=== PATIENT | male | born 1975 | race Caucasian/White ===

== ENCOUNTER 2019-08-11 14:57 | Inpatient (IN) ==
[2019-08-11] MEDS ORDERED: IOPAMIDOL 100 ML BOTTLE IV ONE (14:58)
[2019-08-11] MEDS ORDERED: ONDANSETRON 4 MG/2 ML VIAL IV ONE (15:08)
[2019-08-11] MEDS ORDERED: 0.9 % SODIUM CHLORIDE 1,000 ML IV ONE (15:25)
[2019-08-11] MEDS: HYDROmorphone 2 MG/ML VIAL IV PRN ×4 (15:29→20:05)
[2019-08-11 15:44] LABS: POC Blood Urea Nitrogen 20 mg/dl (6-20); POC CO2 25 mmol/L (22-30); POC Chloride 103 mmol/L (96-108); POC Creatinine 1.3 mg/dl (0.7-1.2); POC Glucose, Random 96 mg/dL (70-105); POC Potassium 4.4 mmol/L (3.3-5.1); POC Sodium 137 mmol/L (133-145)
[2019-08-11 15:47] LABS: Basophils # (Auto) 0.1 K/mcL (0.0-0.3); Basophils % (Auto) 0.7 % (0.0-2.0); Eosinophils # (Auto) 0.4 K/mcL (0.0-0.7); Eosinophils % (Auto) 3.1 % (0.0-7.0); Granulocytes % (Auto) 71.4 % (38.0-78.0); Hematocrit 41.6 % (41.0-55.0); Lymphocytes # (Auto) 2.3 K/mcL (1.5-4.8); Lymphocytes % (Auto) 16.8 % (15.5-49.0); Mean Cell Volume 93.3 fL (80.0-100.0); Mean Corpuscular HGB Conc 33.7 g/dL (31.0-36.0); Mean Platelet Volume 7.3 fL (7.4-10.4); Monocytes # (Auto) 1.1 K/mcL (0.1-0.9); Platelet Count 272 K/mcL (140-440); RBC 4.46 M/mcL (4.50-5.90); Red Cell Distribution Width 12.6 % (11.5-14.5); WBC 13.6 K/mcL (4.5-11.0)
--- NOTE | 2019-08-11 16:05 | Emergency Department Note ---
Abdominal Pain HPI - General Chief Complaint: Abdominal Pain Stated Complaint: Abdominal pain Time Seen by Provider: 08/11/19 15:06 Source: patient Mode of arrival: ambulatory Limitations: no limitations - History of Present Illness HPI Narrative: 44-year-old male who recently had his right kidney removed for renal cell carcinoma comes in status post hospital stay 5 days with abdominal pain and lower right chest pain now requiring oxygen 2 L. His current pain medicine is helping some but this is feeling worse again like when he just recovered from s urgery over a week ago. - Related Data Home Medications Medication Instructions Recorded Confirmed oxyCODONE [OxyCONTIN] 10 mg PO BID 08/11/19 08/11/19 oxyCODONE/APAP [Percocet 5-325 mg] 1 - 2 tab PO Q4-6H PRN 08/11/19 08/11/19 Allergies Allergy/AdvReac Type Severity Reaction Status Date / Time ceftriaxone [From Rocephin] Allergy Hives Verified 06/16/19 09:58 ciprofloxacin [From Cipro] Allergy Verified 06/16/19 09:58 Review of Systems All systems ED: reviewed and negative except as stated. Abdominal Pain PMH - Past Medical History [facility] Narrative: Medical History (Last Reviewed 06/14/19 @ 18:07 by Avril Reilly DO) History of kidney stones (Acute) Medical history: Reports: cancer (Renal cell carcinoma), kidney stones Surgical history ED: Reports: other (Right nephrectomy) Family history: Reports: other (Grandfather diabetic) - Social History Smoking status: Light tobacco smoker Alcohol use: Reports: Occasionally (Did have 4 beers yesterday) Drug use: Reports: none Physical Exam Normocephalic atraumatic. Conjunctive mildly injected bilaterally. Anicteric. No nasal discharge or congestion. Oropharynx pink moist. Neck is supple without lymphadenopathy or thyromegaly. No carotid bruit. Heart is regular rate and rhythm no murmur appreciated. Lungs are clear to auscultation bilaterally without wheezes rales rhonchi or respiratory distress. Abdomen is mildly tender with laparoscopic wound sites healing well. No evidence of infection or trauma. There is no purulent drainage or erythema-wound sites are clean dry and intact. He is point of maximal tenderness is actually the right lower ribs sort of 10th rib area but I do not see any evidence of trauma. No contusion abrasion lacerations erythema. No pedal edema. +2 radial pulse. He is alert oriented able to answer questions appropriately Course Vital Signs Temperature 98.1 F 08/11/19 14:58 Pulse Rate 86 08/11/19 14:58 Respiratory Rate 16 08/11/19 14:58 Blood Pressure 114/73 08/11/19 14:58 Pulse Oximetry (%) 93 08/11/19 14:58 Temperature 98.1 F 08/11/19 14:58 Pulse Rate 78 08/11/19 16:03 Respiratory Rate 16 08/11/19 14:58 Blood Pressure 116/72 08/11/19 16:03 Pulse Oximetry (%) 95 08/11/19 16:03 Abdominal Pain - Lab Data Lab results reviewed: Yes I reviewed the patient's lab results. Result diagrams: 08/11/19 15:33 08/11/19 15:33 Lab Results 08/11/19 08/11/19 08/11/19 Range/Units 15:33 15:33 15:38 WBC 13.6 H (4.5-11.0) K/mcL RBC 4.46 L (4.50-5.90) M/mcL Hgb 14.0 (13.5-16.5) g/dL Hct 41.6 (41.0-55.0) % POC Hct 40.0 L (41.0-55.0) % MCV 93.3 (80.0-100.0) fL MCH 31.5 (26.0-34.0) pg MCHC 33.7 (31.0-36.0) g/dL RDW 12.6 (11.5-14.5) % Plt Count 272 (140-440) K/mcL MPV 7.3 L (7.4-10.4) fL Gran % 71.4 (38.0-78.0) % Lymph % (Auto) 16.8 (15.5-49.0) % [place] % (Auto) 8.0 (1.0-12.0) % Eos % (Auto) 3.1 (0.0-7.0) % Baso % (Auto) 0.7 (0.0-2.0) % Gran # 9.7 H (1.8-8.0) K/mcL Lymph # (Auto) 2.3 (1.5-4.8) K/mcL [place] # (Auto) 1.1 H (0.1-0.9) K/mcL Eos # (Auto) 0.4 (0.0-0.7) K/mcL Baso # (Auto) 0.1 (0.0-0.3) K/mcL VBG Lactic Acid 0.7 (0.5-2.0) mmol/L POC Sodium 137 (133-145) mmol/L Sodium 138 (133-145) mmol/L POC Potassium 4.4 (3.3-5.1) mmol/L Potassium 4.4 (3.3-5.1) mmol/L POC Chloride 103 (96-108) mmol/L Chloride 100 (96-108) mmol/L Carbon Dioxide 25 (22-30) mmol/L POC Total CO2 25 (22-30) mmol/L Anion Gap 13.0 (8-16) POC BUN 20 (6-20) mg/dl BUN 19 (6-20) mg/dl Creatinine 1.2 (0.7-1.2) mg/dl POC Creatinine 1.3 H (0.7-1.2) mg/dl GFR Calculation 73 Glucose 97 (70-105) mg/dL POC Glucose 96 (70-105) mg/dL Calcium 9.1 (8.6-10.4) mg/dl POC WB Ioniz Calcium 1.10 L (1.16-1.32) mmol/L Total Bilirubin 0.7 (0.0-1.0) mg/dL AST 18 (0-37) U/l ALT 38 (0-40) U/l Alkaline Phosphatase 81 (39-117) U/L Total Protein 7.2 (5.9-8.4) gm/dL Albumin 4.0 (3.2-5.2) gm/dL Globulin 3.2 (2.2-3.7) gm/dL Albumin/Globulin Ratio 1.3 (1.0-2.3) Lipase 25 (7-60) U/L - Radiology Data Radiology results reviewed: Yes I reviewed the patient's radiology results. CT of the chest abdomen pelvis with contrast shows multiple subsegmental pulmonary emboli along with some atelectasis and small pleural effusion in the right lower lobe Disposition Pt seen by COST REPORT CLERK/PA only: No Clinical Impression: Hypoxia Pulmonary emboli Qualifiers: Pulmonary embolism type: multiple subsegmental (without acute cor pulmonale) Qualified Code(s): I26.94 - Multiple subsegmental pulmonary emboli without acute cor pulmonale Summary: Patient is initially worked up with chest abdomen and pelvis CT with contrast. This shows subsequent multiple subsegmental pulmonary emboli on the right side likely causing his pleuritic type pain. Laboratory shows leukocytosis and mildly elevated creatinine at 1.3 I discussed his case with Dr. Valdivia, oncologist on-call at [facility]. She recommended Lovenox as opposed to Eliquis secondary to his cancer history. I also discussed his case with Dr. Pascual Kidd, urologist on-call for Dr.Bradley Guzman at [facility]. I reviewed the pathology report which showed renal cell carcinoma totally excised 2.8 cm . He recommended Lovenox as well for pulmonary emboli. I had already given him 10 mg of Eliquis. However I could not send him home on that based on the recommendations noted above. Further complicating the issue is that he was now requiring oxygen 2 L nasal cannula because his saturations dropped to 88 and 89% while at rest. I discussed the case with Dr. Ed Burleson, hospitalist here. He agreed to accept the patient for further care and evaluation in the hospital Disposition: Xfer As Inpt ([facility]) Condition: Fair Referrals: Charlotte Fish ARNP [Primary Care Provider] - Olive Valdivia MD [Physician] -
[2019-08-11 16:08] LABS: ALT/SGPT 38 U/l (0-40); AST/SGOT 18 U/l (0-37); Albumin/Globulin Ratio 1.3 (1.0-2.3); Alkaline Phosphatase 81 U/L (39-117); Bilirubin,Total 0.7 mg/dL (0.0-1.0); Blood Urea Nitrogen 19 mg/dl (6-20); Calcium 9.1 mg/dl (8.6-10.4); Carbon Dioxide 25 mmol/L (22-30); Chloride 100 mmol/L (96-108); Globulin 3.2 gm/dL (2.2-3.7); Glomerular Filtration Rate 73; Glucose 97 mg/dL (70-105)
--- NOTE | 2019-08-11 17:14 | Cat Scan Report ---
CLINICAL INFORMATION: Chest pain and right upper quadrant pain. History of right nephrectomy COMPARISON: Abdomen CT 07/25/2019. TECHNIQUE: Enteric contrast was utilized. 80 cc of Isovue-370 were injected intravenously, and 50 seconds later 2.5 mm helical slices were obtained from the lung apices through the iliac crest. Following reconstruction, 2.5 mm sagittal, coronal and axial reformatted images were processed and reviewed at multiple windows and levels. 7 mm MIP reconstructions were obtained through the lungs to optimize nodule detection.The exam was performed using radiation dose optimization techniques including, but not limited to, automated exposure control, adjustment of the mA and/or kV according to patient size and use of iterative reconstruction technique. FINDINGS: Pulmonary parenchymal windows show moderate subsegmental atelectasis in the posterior right lower lobe. A small groundglass infiltrate is present in the lateral basilar segment of the right lower lobe. Small right pleural effusion appreciated. There is mild subsegmental atelectasis in the posterior left lower lobe. Mediastinal windows show emboli within the superior and lateral basilar segments of the right lower lobe pulmonary arteries and the anterior segment right upper lobe pulmonary artery and possibly the anterior segment left upper lobe pulmonary artery. The central pulmonary arteries are normal diameter and the right ventricle is normal in size - no evidence of pulmonary hypertension related emboli. The heart is normal in size configuration. There are no abnormally enlarged lymph nodes in the mediastinal hilar or axillary region. Esophagus grossly normal. Thyroid is unremarkable. Images should the abdomen show the gallbladder and bile ducts, liver, left kidney, spleen, adrenal glands pancreas and aorta are normal. Right nephrectomy changes appreciated with a 6 cm fluid collection in the nephrectomy bed as expected. The stomach and visualized small large bowel are unremarkable. There is a small amount of gas and edema in the deep right Camper's fascia of the right upper quadrant as expected following right nephrectomy. IMPRESSION: 1. Acute pulmonary emboli in the superior and lateral basilar right lower lobe segmental arteries and the anterior segment right upper lobe and possibly the anterior segment left upper lobe. There is no evidence of pulmonary hypertension. 2. Right nephrectomy changes. A 6 cm seroma in the nephrectomy bed is seen - as expected in the immediate postoperative period. There no evidence of recurrent malignancy, metastases or adenopathy. 3. Moderate subsegmental atelectasis posterior right lower lobe with small groundglass infiltrate in the lateral basal segment. Small right pleural effusion. Mild subsegmental atelectasis left lower lobe. Interpreted and Authenticated by: Sachin Arciniega 08/11/19
[2019-08-11] MEDS ORDERED: APIXABAN 5 MG TABLET PO STA (17:50)
--- NOTE | 2019-08-11 19:38 | Internal Med History&Physical ---
Medical - H&P: [facility] Patient information: Note initiated : 08/11/19 at 7:34 pm Service Date, if different from initiated Date: [] Patient: Daniel Orr a 44 y/o M admitted on for Abdominal pain. Chief Complaint: [] History of present illness: Mr. Orr is a 44 year old M Who presents the ED with right side chest pain sharp nonradiating. Worsened with deep breath. He denies overt shortness of breath but states he just feels like he cannot open up his lungs all the way. No coughing. No syncope. He had right nephrectomy about a week ago and was confirmed on the surgical pathology to be malignant. The mass was within the capsule. The mass on his right kidney was found incidentally about a month ago on a CT scan to rule out diverticulitis. Patient's chest pain started suddenly yesterday at 4 PM and continued through the night. He could not sleep because of the pain. Fact he had a sudden chair most the night because is more comfortable than being in bed. In the ED he was found to have for subsegmental pulmonary emboli on the right lung. He was requiring several liters of oxygen. This was discussed with the surgeon on-call for the team who performed the surgery as well as our local oncologist Dr. Valdivia. Recommendations were to start him on Lovenox and given the oxygen requirement admission was requested. She is not tachycardic blood pressure stable. Review of Systems: Pertinent positives as above. Denies fever/chills/nausea/vomiting/abdominal pain/cough/diarrhea. Otherwise see above. Medical - H&P: PMH Medical history: Medical History (Last Reviewed 06/14/19 @ 18:07 by Avril Reilly DO) History of kidney stones (Acute) Renal cell carcinoma Surgical history: Right nephrectomy a week ago Family history: States his mother father healthy no history of cancer Social history: Patient smokes half pack per day but is cutting down trying to quit Alcohol use patient quit drinking at the time he found out he likely cancer. Medical - H&P: Meds Home Medications Medication Instructions Recorded Confirmed Type oxyCODONE [OxyCONTIN] 10 mg PO BID 08/11/19 08/11/19 History oxyCODONE/APAP [Percocet 5-325 mg] 1 - 2 tab PO Q4-6H PRN 08/11/19 08/11/19 History Allergies Allergy/AdvReac Type Severity Reaction Status Date / Time ceftriaxone [From Rocephin] Allergy Hives Verified 06/16/19 09:58 ciprofloxacin [From Cipro] Allergy Verified 06/16/19 09:58 Medical - H&P: Exam - Constitutional Vitals: Temp Pulse Resp BP Pulse Ox 98.1 F 70 16 119/70 94 08/11/19 14:58 08/11/19 19:16 08/11/19 19:16 08/11/19 19:16 08/11/19 19:16 Medical - H&P: Reslt - Labs CBC & Chem 7: 08/11/19 15:33 08/11/19 15:33 Labs: Short CBC 08/11/19 Range/Units 15:33 WBC 13.6 H (4.5-11.0) K/mcL Hgb 14.0 (13.5-16.5) g/dL Hct 41.6 (41.0-55.0) % Plt Count 272 (140-440) K/mcL BMP 08/11/19 15:33 Sodium 138 Potassium 4.4 Chloride 100 Carbon Dioxide 25 BUN 19 Creatinine 1.2 Glucose 97 Calcium 9.1 Liver Function 08/11/19 Range/Units 15:33 Total Bilirubin 0.7 (0.0-1.0) mg/dL AST 18 (0-37) U/l ALT 38 (0-40) U/l Alkaline Phosphatase 81 (39-117) U/L Albumin 4.0 (3.2-5.2) gm/dL - Impressions CT with acute pulmonary emboli in the upper and lateral basilar right lower lobe segmental arteries and anterior segment right upper lobe and possibly the anterior segment left upper lobe no pulmonary hypertension noted. Atelectasis noted right lower lobe Medical - H&P: A/P - Narrative A/P Narrative: A: *Acute right side pulmonary emboli, provoked: *Right nephrectomy, a week ago for renal cell carcinoma *RCC: *Hypoxia: -on 2L NC from ED *Pleurisy: P: -Lovenox twice daily -Pain control -Splinting technique -monitor vitals closely -wean off O2 as able
[2019-08-11] MEDS ORDERED: ONDANSETRON 4 MG/2 ML VIAL IV PRN (20:32)
[2019-08-11] MEDS ORDERED: PROMETHAZINE 25 MG TABLET PO PRN (20:32)
[2019-08-11] MEDS ORDERED: ACETAMINOPHEN 325 MG TABLET PO PRN (20:32)
[2019-08-11] MEDS ORDERED: SENNOSIDES 1 TABLET PO PRN (20:32)
[2019-08-11] MEDS ORDERED: IPRATROPIUM/ALBUTEROL 3 ML AMPUL.NEB NEB PRN (20:32)
[2019-08-11] MEDS ORDERED: POLYETHYLENE GLYCOL 3350 17 GM PACKET PO PRN (20:32)
[2019-08-11] MEDS: DOCUSATE SODIUM 100 MG CAPSULE PO SCH (21:20)
[2019-08-11] MEDS: 0.9 % SODIUM CHLORIDE 10 ML SYRINGE IV SCH (21:21)
[2019-08-12 06:09] LABS: Basophils # (Auto) 0 K/mcL (0.0-0.3); Basophils % (Auto) 0.3 % (0.0-2.0); Eosinophils # (Auto) 0.3 K/mcL (0.0-0.7); Eosinophils % (Auto) 2.4 % (0.0-7.0); Granulocytes % (Auto) 72.5 % (38.0-78.0); Hemoglobin 13.1 g/dL (13.5-16.5); Lymphocytes # (Auto) 1.8 K/mcL (1.5-4.8); Lymphocytes % (Auto) 15.4 % (15.5-49.0); Mean Cell Volume 94.2 fL (80.0-100.0); Mean Corpuscular HGB Conc 33.5 g/dL (31.0-36.0); Mean Platelet Volume 7.5 fL (7.4-10.4); Monocytes # (Auto) 1.1 K/mcL (0.1-0.9); Monocytes % (Auto) 9.4 % (1.0-12.0); Platelet Count 251 K/mcL (140-440); RBC 4.14 M/mcL (4.50-5.90); Red Cell Distribution Width 12.4 % (11.5-14.5); WBC 11.6 K/mcL (4.5-11.0)
[2019-08-12] MEDS: 0.9 % SODIUM CHLORIDE 10 ML SYRINGE IV SCH ×3 (06:23→15:13)
--- NOTE | 2019-08-12 07:12 | Internal Med Progress Note ---
Medical - PN: Subj Patient information: Note initiated : 08/12/19 at 7:09 am Service Date, if different from initiated Date: [] Patient: Daniel Orr 44 y/o M admitted on 08/11/19 for Abdominal pain. Chief Complaint: [] Interval history: Mr. Orr is a 44 year old M Who presents the ED with right side chest pain sharp nonradiating. Worsened with deep breath. He denies overt shortness of breath but states he just feels like he cannot open up his lungs all the way. No coughing. No syncope. He had right nephrectomy about a week ago and was confirmed on the surgical pathology to be malignant. The mass was within the capsule. The mass on his right kidney was found incidentally about a month ago on a CT scan to rule out diverticulitis. Patient's chest pain started suddenly yesterday at 4 PM and continued through the night. He could not sleep because of the pain. Fact he had a sudden chair most the night because is more comfortable than being in bed. In the ED he was found to have for subsegmental pulmonary emboli on the right lung. He was requiring several liters of oxygen. This was discussed with the surgeon on-call for the team who performed the surgery as well as our local oncologist Dr. Valdivia. Recommendations were to start him on Lovenox and given the oxygen requirement admission was requested. She is not tachycardic blood pressure stable. 08/12 [place] a little sweaty this morning. Otherwise no complaints. Right sided pleuritic chest pain is relatively controlled with pain medication. Coughing. No shortness of breath at rest although is on nasal cannula. At 2 L cannula. No other complaints. Review of Systems: denies headache/fever/chills/nausea/vomiting/abdominal pain/cough/diarrhea. Otherwise see above. - Constitutional Vitals: Vital Signs Temp Pulse Resp BP Pulse Ox 98.7 F 65 16 119/79 93 08/12/19 04:00 08/12/19 06:01 08/12/19 06:01 08/12/19 06:01 08/12/19 06:01 Period Temp Pulse Resp BP Sys/Murcia Pulse Ox Last 24 Hr 98.1 F-98.9 F 61-88 14-20 107-123/60-88 90-98 Intake and Output 08/11/19 08/12/19 08/12/19 21:59 05:59 13:59 Intake Total 1000 Output Total 525 Balance 1000 -525 Weight 105.46 kg Intake & Output: Intake & Output 08/11/19 08/12/19 08/12/19 21:59 05:59 13:59 Intake Total 1000 Output Total 525 Balance 1000 -525 Weight 105.46 kg Intake: IV 1000 Sodium Chloride 0.9% 1,000 ml @ 1000 Wide Open IV BOLUS ONE Rx#: [id number] Output: Void Amount 525 Other: Urine Appearance Clear Urine Color Dark Yellow Exam: General: Alert, Awake, No acute Distress Eyes/N/T: EOMI, Head/Neck: neck supple, CV: RRR, No murmurs, Pulm: Clear b/l, no wheezing/rhonchi/rales Abd: soft, nontender, +BS x4 Ext: no clubbing/cyanosis/edema Neuro: Alert, no focal deficits, moves all extremities, Skin: warm/dry Medical - PN: Obj Da - Labs CBC & Chem 7: 08/12/19 04:00 08/11/19 15:33 Labs: Abnormal Lab Results 08/12/19 08/11/19 08/11/19 04:00 15:33 15:33 WBC 11.6 H 13.6 H RBC 4.14 L 4.46 L Hgb 13.1 L Hct 39.0 L POC Hct 40.0 L MPV 7.3 L Lymph % (Auto) 15.4 L Gran # 8.4 H 9.7 H [place] # (Auto) 1.1 H 1.1 H POC Creatinine 1.3 H POC WB Ioniz Calcium 1.10 L Meds: Medications Acetaminophen (Tylenol) 650 mg PO Q6HP PRN PRN Reason: PAIN/FEVER > 101 Albuterol/Ipratropium (Duoneb) 3 ml NEB Q4HP PRN PRN Reason: Shortness Of Breath Docusate Sodium (Colace) 100 mg PO BID [facility] Last Admin: 08/11/19 21:20 Dose: Not Given Documented by: Enoxaparin Sodium (Lovenox) 100 mg SQ BID [facility] Morphine Sulfate (Morphine) 0 mg IV Q3HP PRN PRN Reason: Pain Last Admin: 08/12/19 02:11 Dose: 2 mg Documented by: Ondansetron HCl (Zofran) 4 mg IV Q4HP PRN PRN Reason: Nausea And Vomiting Polyethylene Glycol (Miralax) 17 gm PO DAILYP PRN PRN Reason: Constipation Promethazine HCl (Phenergan) 0 mg PO Q6HP PRN PRN Reason: Nausea And Vomiting Senna (Senokot) 2 tab PO HSP PRN PRN Reason: Constipation Sodium Chloride (Saline Flush) 10 ml IV Q8 KONG Last Admin: 08/12/19 06:23 Dose: Not Given Documented by: Medical - PN: A/P - Time Spent With Patient Total time spent is greater than 50% in coordination of care (as documented) at patient's floor/unit and/or counseling patient: - Narrative A/P Narrative: A: *Acute right side pulmonary emboli, provoked: *Right nephrectomy, 1 week ago for renal cell carcinoma *RCC: *Acute hypoxic Resp Failure: 2/ above: -on 2L NC on admit *Pleurisy: P: -Lovenox twice daily -Pain control -Splinting technique -monitor vitals closely -wean off O2 as able -IS Medical - PN: Qual - VTE Deep Vein Thrombosis/Pulmonary Embolism Present on Admission: Yes
[2019-08-12] MEDS: DOCUSATE SODIUM 100 MG CAPSULE PO SCH (08:55)
[2019-08-12] MEDS: ENOXAPARIN 100 MG/ML SYRINGE SQ SCH ×2 (08:55→08:56)
[2019-08-12] MEDS: oxyCODONE/APAP 5/325MG TABLET PO PRN ×2 (12:14→16:17)
--- NOTE | 2019-08-12 16:22 | Discharge Summary ---
Medical - DS: Prov Patient information: Note initiated : 08/12/19 at 4:19 pm Service Date, if different from initiated Date: [] Patient: Daniel Orr 44 y/o M admitted on 08/11/19 for Abdominal pain. Chief Complaint: [] Date of admission: 08/11/19 20:14 Discharge date: 08/12/19 Primary care physician: Charlotte Fish Consults: 08/11/19 Consult to Physician [CONS] Stat Comment: Consulting Provider: Ed Burleson Reason For Exam: Physician to Consult Medical - DS: Meds - Discharge Medications Prescriptions: Enoxaparin [Lovenox] 100 mg SQ BID #60 syringe Transmission Status: Pending to [place] [id number] [place] Active and Home Medications: Home Medications oxyCODONE [OxyCONTIN] 10 mg PO BID 08/11/19 [History Confirmed 08/11/19 Last Taken Unknown] oxyCODONE/APAP [Percocet 5-325 mg] 1 - 2 tab PO Q4-6H PRN 08/11/19 [History Confirmed 08/11/19 Last Taken Unknown] Home Medications oxyCODONE [Oxycontin] 10 mg PO BID 08/11/19 [History Confirmed 08/11/19 Last Taken Unknown] oxyCODONE/APAP [Percocet 5-325 mg] 1 - 2 tab PO Q4-6H PRN 08/11/19 [History Confirmed 08/11/19 Last Taken Unknown] Enoxaparin [Lovenox] 100 mg SQ BID #60 syringe 08/12/19 [Rx Last Taken Unknown] Will need Lovenox prescription refilled by PCP Medical - DS: Hosp Hospital Course: Mr. Orr is a 44 year old M Who presents the ED with right side chest pain sharp nonradiating. Worsened with deep breath. He denies overt shortness of breath but states he just feels like he cannot open up his lungs all the way. No coughing. No syncope. He had right nephrectomy about a week ago and was confirmed on the surgical pathology to be malignant. The mass was within the capsule. The mass on his right kidney was found incidentally about a month ago on a CT scan to rule out diverticulitis. Patient's chest pain started suddenly yesterday at 4 PM and continued through t he night. He could not sleep because of the pain. Fact he had a sudden chair most the night because is more comfortable than being in bed. In the ED he was found to have for subsegmental pulmonary emboli on the right lung. He was requiring several liters of oxygen. This was discussed with the surgeon on-call for the team who performed the surgery as well as our local oncologist Dr. Valdivia. Recommendations were to start him on Lovenox and given the oxygen requirement admission was requested. She is not tachycardic blood pressure stable. 08/12 [place] a little sweaty this morning. Otherwise no complaints. Right sided pleuritic chest pain is relatively controlled with pain medication. Coughing. No shortness of breath at rest although is on nasal cannula. At 2 L cannula. No other complaints. Patient responded more quickly to therapy than anticipated. On 2 L of oxygen required this morning but this afternoon he is doing much better oxygen well on room air at rest and while ambulating. Patient stable for discharge. Discharge diagnosis: PE, kidney cancer - Time Spent with Patient Total time spent providing and/or coordinating discharge services: Greater than 30 minutes Medical - DS: Exam - Constitutional Vitals: Vital Signs Temp Pulse Resp BP Pulse Ox 08/12/19 16:02 62 111/78 93 08/12/19 15:00 66 93 08/12/19 14:00 63 94 08/12/19 13:01 70 94 08/12/19 12:05 57 L 18 91 08/12/19 12:02 98.2 F 67 18 114/79 91 08/12/19 11:01 58 L 15 111/83 94 08/12/19 10:01 67 18 114/81 93 08/12/19 09:12 95 08/12/19 09:01 67 21 120/74 93 08/12/19 08:50 65 17 92 08/12/19 08:45 63 16 98 08/12/19 08:01 98.4 F 67 17 120/78 92 08/12/19 07:45 80 20 95 08/12/19 07:30 73 17 92 08/12/19 07:01 65 17 111/75 93 08/12/19 06:55 65 17 92 08/12/19 06:50 63 15 92 08/12/19 06:45 63 17 92 08/12/19 06:40 65 16 92 08/12/19 06:35 72 20 92 08/12/19 06:30 66 17 93 08/12/19 06:25 63 16 92 08/12/19 06:20 64 17 94 08/12/19 06:15 64 20 93 08/12/19 06:01 65 16 119/79 93 08/12/19 05:01 61 16 115/74 94 08/12/19 04:01 69 16 112/77 93 08/12/19 04:00 98.7 F 08/12/19 03:01 67 17 107/70 92 08/12/19 02:01 66 17 117/71 93 08/12/19 02:00 93 08/12/19 01:01 66 15 123/78 93 08/12/19 00:01 98.9 F 63 14 123/84 93 08/11/19 23:44 62 15 93 08/11/19 23:01 69 16 117/76 94 08/11/19 22:13 71 19 92 08/11/19 22:01 88 20 91 08/11/19 21:25 71 17 93 08/11/19 20:29 75 20 120/74 93 08/11/19 20:24 98.1 F 70 16 119/70 94 08/11/19 20:01 73 17 118/80 93 08/11/19 19:46 68 17 115/77 92 08/11/19 19:31 98.7 F 78 14 108/88 93 08/11/19 19:16 70 16 119/70 94 08/11/19 19:01 69 16 120/74 94 08/11/19 18:46 74 16 121/66 94 08/11/19 18:31 71 16 109/60 94 08/11/19 18:19 70 14 112/60 94 08/11/19 18:16 74 18 112/60 95 08/11/19 17:00 68 20 109/61 98 Intake and Output 08/12/19 08/12/19 08/12/19 05:59 13:59 21:59 Intake Total 600 120 Output Total 525 475 175 Balance -525 125 -55 Intake: Oral 600 120 Output: Void Amount 525 475 175 Other: Meal Breakfast Lunch Percent of Meal Consumed 75% 100% Feeding Ability Independent Independent Urine Appearance Clear Clear Urine Color Dark Yellow Light Ana Weight 105.46 kg Patient Weight 08/13/19 05:59 Weight 105.46 kg Medical - DS: Data Labs on day of discharge: Labs from last 24 hours 08/12/19 08/11/19 04:00 15:38 WBC 11.6 H RBC 4.14 L Hgb 13.1 L Hct 39.0 L MCV 94.2 MCH 31.6 MCHC 33.5 RDW 12.4 Plt Count 251 MPV 7.5 Gran % 72.5 Lymph % (Auto) 15.4 L [place] % (Auto) 9.4 Eos % (Auto) 2.4 Baso % (Auto) 0.3 Gran # 8.4 H Lymph # (Auto) 1.8 [place] # (Auto) 1.1 H Eos # (Auto) 0.3 Baso # (Auto) 0 VBG Lactic Acid 0.7 Medical - DS: A/P - Patient/Caregiver Discharge Instructions Activity: increase activity as tolerated Diet: Regular Diet - Follow up Plan Follow up with: Olive Valdivia MD [Physician] - Charlotte Fish ARNP [Primary Care Provider] - Disposition: Home, Self-Care Care Plan Goals: This discharge packet is provided to you to help keep you informed about your care. We want to ensure you get everything you need when you go home. You will also be receiving a call from us in a few days to follow up with you and see how you are doing since your discharge. This gives us a chance to listen to any concerns you maybe experiencing since you were discharged or any additional needs you may have, as well as providing us feedback on your care experience. We strive to always provide excellent care and thank you for your feedback and for choosing [facility]. Prognosis: Fair Rehab Potential: Fair Overall status at discharge: patient is progressing back to baseline Medical - DS: Qual - VTE Deep Vein Thrombosis/Pulmonary Embolism Present on Admission: Yes
== END 2019-08-12 18:00 | disposition home or self-care (01) | DRG 176 ==
LOC: ED 14:57 → ICU 20:14
PROVIDERS: ADMIT Internal Medicine; ATTEND Internal Medicine